=== PATIENT | female | born 1995 | race Caucasian/White ===

== ENCOUNTER 2016-12-27 18:38 | Emergency (ER) | payer BC, OTHER ==
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
[2016-12-27] MEDS ORDERED: CYCLOBENZAPRINE HCL 5 MG TABLET PO ONE (20:28)
[2016-12-27] MEDS ORDERED: IBUPROFEN 400 MG TABLET PO ONE (20:28)
[2016-12-27 20:58] VITALS: BP 108/61
--- NOTE | 2016-12-28 07:23 | Diagnostic Imaging Report ---
ARIANNA BARRAZA [facility] [address] [facility] [address] Report Submission Date: Dec 27, 2016 8:41:36 PM CDT Patient Study Name: THIERNO BERG Date: Dec 27, 2016 7:53:13 PM CDT Modality Type: CR Gender: F Description: PELVIS : 95 Institution: [facility] Physician: ARIANNA BARRAZA Pelvis Clinical history pain Technique AP supine pelvis Findings: The pelvic ring is intact. The hips are intact. There is no fracture or lytic lesion. Impression: Negative pelvis Electronically signed on Dec 27, 2016 8:41:36 PM CDT by: Bryce WHEELER
--- NOTE | 2016-12-28 07:24 | Diagnostic Imaging Report ---
ARIANNA BARRAZA [facility] [address] [facility] [address] [address] Report Submission Date: Dec 27, 2016 8:36:10 PM CDT Patient Study Name: THIERNO BERG Date: Dec 27, 2016 7:54:54 PM CDT Modality Type: CR Gender: F Description: LOWER EXTREMITY : 95 Institution: [facility] Physician: ARIANNA BARRAZA Left femur AP and lateral Clinical history: Pain Technique AP and lateral femur radiographs Findings: There is no fracture dislocation. Bone density is normal. Impression: Negative left femur Electronically signed on Dec 27, 2016 8:36:10 PM CDT by: Bryce WHEELER
--- NOTE | 2016-12-28 07:26 | Diagnostic Imaging Report ---
ARIANNA BARRAZA [facility] [address] [facility] [address] [address] Report Submission Date: Dec 27, 2016 8:35:17 PM CDT Patient Study Name: THIERNO BERG Date: Dec 27, 2016 7:58:30 PM CDT Modality Type: CR Gender: F Description: LOWER EXTREMITY : 95 Institution: [facility] Physician: ARIANNA BARRAZA Bilateral knees Clinical history knee pain Technique AP lateral sunrise of both knees Findings: There is no fracture lytic lesion. Bone density is normal. The joint space narrowed in both medial knee joints in a symmetric fashion. Impression: Symmetric bilateral knee degenerative arthritis otherwise negative Electronically signed on Dec 27, 2016 8:35:17 PM CDT by: Bryce WHEELER
--- NOTE | 2016-12-28 07:27 | Diagnostic Imaging Report ---
ARIANNA BARRAZA [facility] [address] [facility] [address] [place], [place]. [address] Report Submission Date: Dec 27, 2016 8:40:32 PM CDT Patient Study Name: THIERNO BERG Date: Dec 27, 2016 8:15:48 PM CDT Modality Type: CT\SR Gender: F Description: CT MAXILLOFACIAL W/O D : 95 Institution: [facility] Physician: ARIANNA BARRAZA CT facial bones Clinical history: Facial pain Technique helical axial than through the facial bones with multiplanar reconstructions Findings: There is a retention cyst in the right maxillary sinus. The mandible is intact. The zygomatic arches are intact. The nasal septum is midline. There is no orbital emphysema. The frontal sinuses are clear. There is minimal maxillary and ethmoid sinus mucosal thickening. The orbital floors are intact. Impression: Negative for facial bone fracture A right maxillary sinus retention cyst Scattered maxillary and ethmoid sinus mucosal thickening Electronically signed on Dec 27, 2016 8:40:32 PM CDT by: Bryce WHEELER
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
== END 2016-12-27 20:50 | disposition home or self-care (01) ==
LOC: ED 18:38
DX: S16.1XXA Strain of muscle, fascia and tendon at neck level, initial encounter (principal); V43.52XA Car driver injured in collision with other type car in traffic accident, initial encounter; Y92.414 Local residential or business street as the place of occurrence of the external cause; Y93.9 Activity, unspecified; Y99.9 Unspecified external cause status
CPT/HCPCS: 70486; 72125; 72170; 73552; 99283; 99284